=== PATIENT | male | born 1995 | race Caucasian/White ===

== ENCOUNTER → 2017-11-27 | Outpatient (REF) | payer BC, OTHER ==
[~2017-11-27] MED LIST: DIAZ-305 PO; FLU10 PO; FLUO40CA76 PO; IBUP200C72 PO; LOR5/325 PO; LORA-802 PO; SUMA25TA26 PO; TRAZ50 PO; [UNRECOGNIZED DRUG - CODE]
[2017-11-27 12:07] LABS: PLATELET COUNT, AUTOMATED 242 K/uL (150-450)
== END ==
LOC: ZZSENDIN 11:53
PROVIDERS: ATTEND Physician Assistant
DX: R10.31 Right lower quadrant pain (principal)
CPT/HCPCS: 82040; 82247; 82310; 82374; 82435; 82565; 82947; 84075; 84132; 84155; 84295; 84450; 84460; 84520; 85025

== ENCOUNTER → 2017-11-27 | Outpatient (CLI) | payer BC, OTHER ==
[~2017-11-27] MED LIST changes: +IOPAMIDOL 76% 100 ML INFUS BTL 100 ML ONE
--- NOTE | 2017-11-27 13:26 | RADIOLOGY IMAGING REPORT ---
FACILITY: [facility] PATIENT NAME: Karan Barrera : 1995 MR: [id number] V: [id number] EXAM DATE: ORDERING PHYSICIAN: VERO ROBERTSON TECHNOLOGIST: Location: [facility] Patient: Karan Barrera : 1995 Visit/Account:[id number] Date of Sevice: 11/27/2017 EXAMINATION: CT abdomen with IV contrast CT pelvis with IV contrast HISTORY: Abdominal pain. TECHNIQUE: Spiral scan was through the abdomen and pelvis during injection of nonionic iodinated in travenous contrast. Sagittal and coronal reformatted images are also submitted. One of the following dose optimization techniques was utilized in the performance of this exam: Autom ated exposure control; adjustment of the mA and/or kV according to the patient's size; or use of an i terative reconstruction technique. Specific details can be referenced in the facility's radiology C T exam operational policy. CONTRAST: 75 mL of IV Isovue-[id number] COMPARISON: None available. FINDINGS: Lower chest: Negative. Liver / biliary: Negative. Pancreas: Negative. Spleen: Negative. Adrenal glands: Negative. Kidneys: Negative. Pelvic structures: Negative. Bowel: Normal appendix. Otherwise negative. Peritoneum / retroperitoneum / mesenteries: Negative. Vessels: Negative. Lymph nodes: Negative. Musculoskeletal / Body wall: Negative. IMPRESSION: Normal contrast-enhanced CT of the abdomen and pelvis. Report Dictated By: Dev Garcia MD at 11/27/2017 1:16 PM Report E-Signed By: Dev Garcia MD at 11/27/2017 1:22 PM WSN:[id number]
== END ==
LOC: CT 11:50
PROVIDERS: ATTEND Physician Assistant
DX: R10.10 Upper abdominal pain, unspecified (principal)
CPT/HCPCS: 74177; Q9967